=== PATIENT | male | born 1935 | race Caucasian/White ===

== ENCOUNTER 2022-12-25 09:35 | Outpatient (CLI) | payer MEDICARE, OTHER, SELFPAY ==
--- OUTSIDE RECORDS SUMMARY | 2022-12-25 22:04 | XMS_ITS | Continuity of Care Document ---
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 Name Role Phone Unavailable Unavailable Unavailable Procedures Procedure Date Office/outpatient visit,[facility] 2010 X-ray exam lwr spine, min 4 views Advance Directives Directive Yes / No Effective Date File Name No Information Encounters Encounter Description Practice Location Reason(s) For Visit Diagnoses Date Provider Providers Copied on Encounter [facility] [place], [address], [facility], tel:[phone] [facility] No Information No Information Office/outpat ient visit,[facility], [facility] [place] [facility] [place], [address], [facility], tel:[phone] [facility] [place] No Information Sofia Proctor. [facility] [place], [address] [place] [address], [address], [place], [id number], . tel:[phone] Family History Family Member Type Diagnosis Age At Onset No Information Payers Payer name Insurance type Covered green party ID Authoriza tion(s) Medicare MB [id number] Aetna CI [id number] [facility], [facility]. CI [id number] Social History Type Description Quantity Date Captured Comments Sex Male Smoking Status No Information Chief Complaint And Reason For Visit No Information Reason For Referral Reason For Referral No Information History Of Present Illness Encounter Date Complaint History Of Prese nt Illness No Information Functional Status Date Functional Assessmen t No Information Instructions Date Instruction Additional Infor mation No Information Assessments Type Assessment Date No Information Patient Care Teams Name Effective Dates (start - stop) Status Members No Information
== END 2022-12-25 09:36 | disposition home or self-care (01) ==
PROVIDERS: PCP Internal Medicine; Referring Provider Internal Medicine; Visit Provider Internal Medicine
DX: I10 Essential (primary) hypertension (principal); K76.0 Fatty (change of) liver, not elsewhere classified; E78.5 Hyperlipidemia, unspecified; R97.20 Elevated prostate specific antigen [PSA]; E11.9 Type 2 diabetes mellitus without complications
CPT/HCPCS: 80053; 80061; 84153

== ENCOUNTER 2024-02-18 08:30 | Outpatient (CLI) | payer MEDICARE, SELFPAY ==
--- OUTSIDE RECORDS SUMMARY | 2024-02-21 07:10 | XMS_ITS | Clinical Summary ---
Author Organization [facility] Address [place], [place] [address] Care Team Providers Care Deli/Bakery Associate Name Role Phone Mckinley Olvera MD Primary Care Provider Allergies No known active allergies Medications Medication Sig Dispensed Refills Start Date End Date Status ONETOUCH ULTRA TEST strip 06/24/2016 Active fluorometholone (FML) 0.1 % ophthalmic suspension SHAKE LQ AND INT 1 GTT IN OS ONCE D 12 07/16/2017 Active BD INSULIN PEN NEEDLE UF 31 gauge x 5/16 U BID 4 04/18/2017 Active celecoxib (CELEBREX) 200 mg capsule Take 1 capsule by mouth. DAILY PRN 0 04/08/2018 Active insulin glargine (LANTUS U-100 INSULIN) 100 unit/mL injection Inject 47 Units subcutaneous once daily. 10 mL 04/08/2018 Active metoprolol tartrate (LOPRESSOR) 25 mg tablet 0.5 tablets 2 times daily. 0 04/08/2018 Active multivitamin (MVI) tablet Take 1 tablet by mouth once daily. 0 04/08/2018 Active insulin aspart U-100 (NOVOLOG) 100 unit/mL solution for injection Inject subcutaneous 3 times daily before meals. 16 U in the AM , 16 U in the evening and 11 Units one time daily 0 04/08/2018 Active carboxymethylcellu lose 0.5% (REFRESH TEARS) 0.5 % drop ophthalmic drops Place 1 Drop into both eyes 4 times daily if needed for Dry Eyes. 0 04/08/2018 Active rosuvastatin (CRESTOR) 10 mg tablet Take 1 tablet by mouth at bedtime. 0 04/08/2018 Active montelukast (SINGULAIR) 10 mg tablet Take 1 tablet by mouth at bedtime. 0 04/08/2018 Active lisinopril (PRINIVIL; ZESTRIL) 20 mg tablet Take 2 tablets by mouth once daily. 0 04/08/2018 Active melatonin 3 mg tablet Take 1 tablet by mouth at bedtime if needed for Sleep. 0 04/17/2018 Active hydrocortisone 1 % creamIndications:R phillip Apply topically to affected area(s) 2 times daily. 14.2 g 04/25/2018 Active traMADol (ULTRAM) 50 mg tablet TK 1 TO 2 TS PO Q 6 H PRN P 0 12/09/2018 Active ONETOUCH ULTRASOFT LANCETS 4 times daily. 2 09/11/2018 Active oxybutynin XL (DITROPAN XL) 5 mg CR tabletIndications: Urinary urgency TAKE 1 TABLET BY MOUTH EVERY DAY 90 Tablet 3 09/14/2021 Active Active Problems Problem Noted Date Diagnosed Date Elevated PSA 06/24/2018 History of bladder cancer 04/27/2018 Overview (04/27/2018): Images from the original note were not included. S/P right knee arthroscopy 04/10/2018 Aftercare following right knee joint replacement surgery 04/10/2018 Constipation 04/10/2018 Acute postoperative pain of right knee 8 Hypertension 04/08/2018 Hyperlipidemia 04/08/2018 DM type 2 with diabetic peripheral neuropathy Spinal stenosis, lumbar aminata on, without neurogenic claudication 11/10/2010 Degeneration of lumbar or lumbosacral interverte bral disc 11/10/2010 Social History Tobacco Use Types Packs/Day Years Used Date Smoking Tobacco: Never Smokeless Tobacco: Never Tobacco Cessation:Counseling Given: Yes Alcohol Use Standard Drinks/Week Comments Not Currently 0 (1 standard drink = 0.6 oz pur e alcohol) Sex and Gender Information Value Date Recorded Sex Assigned at Not on file Gender Identity Not on file Sexual Orientation Not on file Obstetrics History Last Filed Vital Signs Vital Sign Reading Time Taken Comments Blood Pressure 179/81 03/15/2020 9:10 AM ROTARY OPERATOR Pulse 91 03/15/2020 9:10 AM ROTARY OPERATOR Temperature 36.8 ??C (98.2 ??F) 06/24/2018 9:53 AM CD T Respiratory Rate 20 04/07/2019 10:1 2 AM ROTARY OPERATOR Oxygen Saturation 98% 03/15/2020 9:10 AM ROTARY OPERATOR Inhaled Oxygen Concentration - - Weight 75.2 kg (165 lb 11.2 oz) 03/15/2020 9:10 AM ROTARY OPERATOR Height 172.7 cm (5' 8) 07/19/2017 2:18 PM CDT Body Mass Index 25.19 07/19/2017 2:18 PM CDT Plan of Treatment Health Maintenance Due Date Last Done Comments Tdap 1945 Depression screening for age 12+ 1946 Tetanus booster 1954 Zoster (shingles) series for age 50+ (1 of 2) 11/27/18 85 Medicare Wellness for age 65+ 11/28/1999 Pneumococcal series for age 65+ (1 of 1 - PCV) 000 RSV vaccine for adults or pr egnancy (1 - 1-dose 75+ series) 2009 BMI (ht and wt on same day) for age 18+ 07/19/2018 0 07/19/2017 COVID-19 vaccine series (2023-25 season) 4 Influenza for age 65+ 12/16/2023 Care Teams Deli/Bakery Associate Relationship Specialty Start Date End Date Mckinley Olvera MD [address] [place] [address] PCP - General 09/07/10
--- OUTSIDE RECORDS SUMMARY | 2024-02-21 07:10 | XMS_ITS | Continuity of Care Document ---
Author Organization [facility] Address [address] [place] [address] Care Team Providers Care Personal Shopper Name Role Phone HUMBERTO FOOTE Primary Care Provider Assessment No assessment recorded. Plan of Treatment Reminders Order Date Submit Date Provider Last Modified By Organization Details Last Modified Time Details Appointments PSA 10 2023 02:20P M [facility] Not available Not available Not available ESTABL ISHED 10 2023 02:40P M David Valdes MD Not available Not available Not available Lab PSA, serum or plasma 2023 024 [email or web address] ro [facility], [address], [place], [address], 12/19/2023 12:55:38 PSA, total, serum or plasma 2023 024 [email or web address] [facility], [address], [place], [address], 12/19/2023 13:18:50 Referral None record ed. Procedures None record ed. Surgeries None record ed. Imaging None record ed. Medication Orders Eligar d 45 mg (6 month) subcut aneous syring e 2023 024 [email or web address] ro [address], [address], 12/19/2023 13:15:34 Patient TargetsNo targets recorded. Patient InstructionsNo instructions recorded. Reason for Referral None Reported. Results Created Date Observation Date Name Description Value Unit Range Abnormal Flag Note LastModifiedBy Organization Detail LastModifiedTime 12/19/19 24 12/19/2023 PSA, serum or plasm a PSA 11.9ng /mL 0-4.0 NG/mL Not Available [facility] [address], [place], [address], 12/05/2023 15:16:19 Result Notes None recorded. Procedures Surgical History Date Name Laterality Status Provider Name and Address Organization Details Recorded Time 4 Blood Draw/GERIATRIC PHYSICAL THERAPIST/PSA RESULTS completed Cirilo cruz [facility] 12/19/2023 12:36:19 4 Faye completed Cirilo cruz [facility] 12/19/2023 13:14:21 4 Blood Draw/GERIATRIC PHYSICAL THERAPIST/PSA RESULTS completed David Valdes MD [address] [place] [address],[address], [address], [facility] 09/03/2023 14:04:52 3 Faye completed Lesley Terry [facility] 09/18/2022 15:17:17 3 Prostate Biopsy Procedure completed David Valdes MD [address] [place] [address],[address] [place] [address], [address], [facility] 07/04/2022 20:08:52 3 Cystoscopy- male completed David Valdes MD [address] [place] [address],[address], [address], [facility] 06/26/2022 13:36:24 3 Keflex post Cysto completed David Valdes MD [address] [place] [address],[address], [place], [address], [facility] 06/26/2022 12:26:10 3 GERIATRIC PHYSICAL THERAPIST/blood draw completed David Valdes MD [address] [place] [address],[address], [place], [address], [facility] 06/26/2022 12:26:14 Imaging Results None recorded. Procedure Notes None recorded. Medical Equipment None Reported. Allergies No known drug allergies Medications Name Sig Start Date Stop Date Status Note LastModified by Organization Details LastModified Time celecoxib 200 mg capsule TAKE ONE CAPSULE BY MOUTH EVERY DAY NEEDED FOR PAIN active Not Available Not Available No t Available bicalutamid e 50 mg tablet TAKE ONE TABLET BY MOUTH EVERY DAY FOR 30 DAYS 12/18 completed Not Available Not Available Not Available lisinopril 20 mg tablet TAKE TWO TABLETS(4 0MG) BY MOUTH EVERY DAY FOR HYPERTENS ION active Not Available Not Available No t Available Lantus U-100 Insulin 100 unit/mL subcutaneou s solution INJECT 47 UNIT (0.47 ML) SUBCUTANE OUSLY EVERY DAY FOR DIABETES; active Not Available Not Available No t Available ciprofloxac in 500 mg tablet TAKE ONE TABLET BY MOUTH EVERY 12 HOURS FOR 4 DAYS - START 1 DAY BEFORE BIOPSY 12/18 completed Not Available Not Available Not Available sulfamethox azole 800 mg-trimetho prim 160 mg tablet TAKE 1 TABLET BY MOUTH EVERY 12 HOURS FOR 7 DAYS 06/26 completed Not Available Not Available Not Available tramadol 50 mg tablet TAKE ONE TABLET (50 MG) BY MOUTH EVERY EIGHT HOURS NEEDED FOR PAIN. active Not Available Not Available No t Available ceftriaxone 1 gram solution for injection Take 1 g by injection route. 08/[address],M A Not Available Not Available Not Available OneTouch Ultra Test strips TEST THREE TIMES DAILY active Not Available Not Available No t Available fluorometho lone 0.1 % eye drops,suspe nsion SHAKE LIQUID AND INSTILL 1 DROP IN LEFT EYE EVERY DAY active Not Available Not Available No t Available oxybutynin chloride ER 5 mg tablet,exte nded release 24 hr TAKE 1 TABLET BY MOUTH EVERY DAY 09/02 completed Not Available Not Available Not Available montelukast 10 mg tablet TAKE ONE TABLET BY MOUTH EVERY DAY FOR ALLERGIES active Not Available Not Available No t Available cefuroxime axetil 500 mg tablet TAKE 1 TABLET BY MOUTH EVERY 12 HOURS FOR 5 DAYS 06/26 completed Not Available Not Available Not Available Eligard 22.5 mg (3 month) subcutaneou s syringe Inject 22.5 mg by subcutane ous route. 2022 active Not Available Not Available Not Avai lable Novolog FlexPen U-100 Insulin aspart 100 unit/mL (3 mL) subcutaneou s INJECT 16 UNIT (0.16 ML) SUBCUTANE OUSLY THREE TIMES A DAY FOR DIABETES active Not Available Not Available No t Available rosuvastati n 10 mg tablet TAKE ONE TABLET(10 MG) BY MOUTH FOR HYPERLIPI DEMIA active Not Available Not Available No t Available metoprolol tartrate 25 mg tablet TAKE 1/2 TABLET(12 .5MG) BY MOUTH TWICE A DAY FOR HYPERTENS ION active Not Available Not Available No t Available Eligard 45 mg (6 month) subcutaneou s syringe Inject 45 mg by subcutane ous route. 2023 active Not Available Not Available Not Avai lable BD Ultra-Fine Short Pen Needle 31 gauge x 5/16 TO USE WITH NOVOLOG FLEXPEN THREE TIMES DAILY active Not Available Not Available No t Available TRUEplus Insulin 1 mL 31 gauge x 5/16 syringe FOR DIABETES; USING FOUR TIMES A DAY active Not Available Not Available No t Available TRUEplus Lancets 28 gauge USE THREE TIMES DAILY active Not Available Not Available No t Available BD Veo Insulin Syringe Ultra-Fine 1 mL 31 gauge x 15/64 USE FOUR TIMES DAILY active Not Available Not Available No t Available Vitals Date Recorded Body height Body mass index (BMI) Body weight Provider Name and Address Organization Details Last Updated DateTime 12/19/2023 170.18 cm 25.8 kg/m2 73487.74 g Cirilo arceo [facility] 12/19/2023 12:35:30 Social History Question Answer Notes LastModified by Organizat ion Details LastModified Time Tobacco Smoking Status [facility] 10:47:21 What Is Your Level Of Alcohol Consumption? Occasional Information not available 05/01/2022 What Is Your Level Of Caffeine Consumption? Heavy Information not available 05/01/2022 Are You Currently Employed? No Information not available 05/01/2022 Recreational Drug Use No Information not available 05/01/2022 What Was The Date Of Your Most Recent Tobacco Screening? 12/19/2023 [email or web address] Information not available 12/19/2023 Have You Ever Been Counseled For Unhealthy Alcohol Use? No Information not available 09/03/2023 What Is Your Relationship Status? Information not available 05/01/2022 Do You Use Any Illicit Or Recreational Drugs? No Information not available 05/01/2022 Has Tobacco Cessation Counseling Been Provided? No Information not available 05/01/2022 Do You Or Have You Ever Used Any Other Forms Of Tobacco Or Nicotine? No Information not available 05/01/2022 How Many Days In The Past Year Have You Consumed 5 Or More Drinks? 0 Information not available 09/03/2023 Sex: Unknown Functional Status None recorded. Mental Status None recorded. Family History Relationship Description Onset Age of this Age Resolved Age Notes LastModified by Organization Details LastModified Time Unspecified Relation Family history of malignant neoplasm Not available 2023 14:03:41 Medical History Condition Response Sexually Transmitted Infection N Diabetes Y Bleeding Disorder N High Blood Pressure Y Kidney Stones N Cancer Y Lung Disease N Depression N High Cholesterol Y GERD/Acid Reflux Y Heart Disease N Immunizations Vaccine Type Date Status Provider Name and Address Organization Details Recorded Time zoster recombinant 08/09/2017 completed David jerez MD [address] [place] [address], [address], [facility] 09/03/2023 14:02:59 zoster recombinant 10/30/2017 completed David jerez MD [address] [place] [address],[address], [address], [facility] 09/03/2023 14:03:00 Influenza, high-dose, quadrivalent, PF 06/30/2020 completed David Valdes MD [address] [place] [address], [address], [facility] 09/03/2023 14:03:00 Influenza, high-dose, quadrivalent, PF 01/26/2022 completed David Valdes MD [address] [place] [address],[address], [address], [facility] 09/03/2023 14:03:00 COVID-19, mRNA, LNP-S, PF, 30 mcg/0.3 mL dose 06/08/2020 completed David Valdes MD [address] [place] [address],[address], [address], [facility] 09/03/2023 14:03:00 COVID-19, mRNA, LNP-S, PF, 30 mcg/0.3 mL dose 06/29/2020 completed David Valdes MD [address] [place] [address],[address], [place], [address], [facility] 09/03/2023 14:03:00 COVID-19, mRNA, LNP-S, PF, 30 mcg/0.3 mL dose 01/18/2021 completed David Valdes MD [address] [place] [address],[address], [place], [address], [facility] 09/03/2023 14:03:00 Pneumococcal conjugate PCV20, polysaccharide [id number] conjugate, adjuvant, PF 05/24/2022 completed David Valdes MD [address] [place] [address],[address], [place], [address], [facility] 09/03/2023 14:03:00 COVID-19, mRNA, LNP-S, bivalent, PF, 30 mcg/0.3 mL dose 01/26/2022 completed David Valdes MD [address] [place] [address],[address], [place], [address], [facility] 09/03/2023 14:03:00 Tdap 02/06/2012 completed David Valdes MD [address] [place] [address],[address], [place], [address], [facility] 09/03/2023 14:03:00 Tdap 02/16/2022 completed David Valdes MD [address] [place] [address],[address], [place], [address], [facility] 09/03/2023 14:03:00 Novel [id number], all formulations 05/02/2009 completed David Valdes MD [address] [place] [address],[address], [place], [address], [facility] 09/03/2023 14:03:00 zoster live 04/29/2010 completed David Valdes MD [address] [place] [address],[address], [place], [address], [facility] 09/03/2023 14:03:00 Influenza, high-dose, trivalent, PF 01/17/2018 completed David Valdes MD [address] [place] [address],[address], [place], [address], [facility] 09/03/2023 14:03:00 Influenza, high-dose, trivalent, PF 02/04/2014 completed David Valdes MD [address] [place] [address],[address], [place], [address], [facility] 09/03/2023 14:03:00 Influenza, high-dose, trivalent, PF 02/04/2015 completed David Valdes MD [address] [place] [address],[address], [place], [address], [facility] 09/03/2023 14:03:00 Influenza, split virus, trivalent, preservative 12/26/2011 completed David Valdes MD [address] [place] [address],[address], [place], [address], [facility] 09/03/2023 14:03:00 Influenza, split virus, trivalent, preservative 12/29/2010 completed David Valdes MD [address] [place] [address],[address], [place], [address], [facility] 09/03/2023 14:03:00 Influenza, split virus, trivalent, PF 12/29/2009 completed David Valdes MD [address] [place] [address],[address], [place], [address], [facility] 09/03/2023 14:03:00 Influenza, split virus, quadrivalent, PF 05/02/2009 completed David Valdes MD [address] [place] [address],[address], [place], [address], [facility] 09/03/2023 14:03:00 Pneumococcal conjugate PCV 13 09/01/2014 completed David Valdes MD [address] [place] [address],[address], [address], [facility] 06/26/2022 12:23:57 Pneumococcal conjugate PCV 13 02/16/2015 completed David Valdes MD [address] [place] [address],[address], [place], [address], [facility] 06/26/2022 12:23:57 Past Encounters Encounter ID Performer Location Encounter Start Date Encounter Closed Date Diagnosis/Indication Diagnosis SNOMED-CT Code Diagnosis ICD10 Code [id number] David Valdes MD [facility] [address] [address] 12/19/2023 12:24:53 12/20/2023 13:55:50 Carcinoma of prostate 969930803 C61 Malignant neoplasm of urinary bladder 706213249 C67.9 Urgent ghassan lashawn to urinate 43790674 R39.15 Health Concerns Section Related Observation LastModified by Organization Detai ls LastModified Time None Recorded Concern Status LastModified by Organization Details LastModified Time None Recorded Payers Encounter Date Sequence Insurance Name Policy Number Policy Rosen Covered Member ID Rosen Member ID Guarantor Name 12/19/2023 1 [place]IC[place]: [employer] Dwight Lares [id number] Dwight Lares 12/19/2023 2 [employer] OPTIONS (MEDICARE SUPPLEMENT) Dwight Lares [id number] Dwight Lares Notes Date Note Type Note Provider Name and Address Organization Details Recorded Time 12/19/2023 text/html HPI Notes: 88 yo male with history of Prostate cancer (cT1c - Russell 4+4=8) and Bladder cancer (superficial - Nov 1999 and CIS - Dec 2003), BPH (s/p TURP in 2001), and elevated PSA (s/p TRUS bx - Apr 1993 and Apr 1997). He underwent TUR-BTs in Nov 1999, 01/07/00, 03/27/00, and 10/09/00. He was then treated with BCG (6 weeks). Follow-up Cystoscopies and urine cytologies were negative. 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 He underwent an 8 week course of Mitomycin. Follow-up cystoscopies, biopsies, and urine cytology / FISH were negative. His last Cystoscopy was 03/15/20. + Family H/O Prostate cancer - uncle. He was on Oxybutynin ER 5 mg daily. 05/01/22 - He presents for follow-up on Elevated PSA and Bladder cancer. He reports more urinary urgency and frequency over the past several months - denies dysuria. He voids every 2 hours during the day and 1x/night. UCx (05/01/22) - Citrobacter freundii - treated with Bactrim DS BID x 7 days 06/26/22 - He presents for follow-up on Bladder cancer and Elevated PSA. He voids every 1-3 hours during the day and 0-1x/night. He denies hesitancy, hematuria, or dysuria. TRUS bx (07/04/22) - 29.1 gm - Prostate cancer - cT1c - Jason 4+4 = 8 - Russell 4+4 = 8 - Right - 1/6 cores (15%) - no perineural invasion - Russell 4+3 = 7 - Lesion 1 (left mid - all cores (90-100%) - no perineural invasion - Russell 3+4 = 7 - Left - all cores (35-90%) - no perineural invasion seen - Hormonal therapy - Eligard 22.5 mg (09/18/22) 09/03/23- He presents for follow-up on prostate cancer and PSA. He voids every 1-3 hours during the day and 1x/night. He still has hot flashes (several times /day). 12/19/23- He presents for follow-up on prostate cancer and PSA. + Hot flashes. No change in urination. - PSA -11.9 PSA - 1.69 (05/02/10) - 2.96 (03/10/11) - 7.52 (01/11/18) - 7.09 (03/18/18) - 6.01 (06/20/18) - 8.77 (12/25/18) - 8.45 (03/23/19) - 12.39 () - 11.72 (01/27/20) - 13.7 (06/23/21) - 24.8 (02/09/22) - 39.1 (06/26/22) - 6.5 (09/03/23) - 11.9 (12/19/23) Prostate MRI (03/22/20) - 18 gm - Lesion 1 - (PI-RADS 4) - 1.2 cm x 1.2 cm - Left mid-gland (5-6 o'clock) Bone scan (08/01/22) - no convincing evidence of skeletal metastases CT scan (08/01/22) - no evidence of metastatic disease - + Right inguinal hernia (fat) David Valdes MD [address] [facility],[address], [place], [address], [place] [facility] 12/19/2023 22:01:01
--- OUTSIDE RECORDS SUMMARY | 2024-02-21 07:10 | XMS_ITS | Continuity of Care Document ---
Author Organization Z [facility] Address [address] [place] [address] Phone Care Team Providers Care Escort Car Driver Name Role Phone Unavailable Unavailable Unavailable Procedures Procedure Date Office/outpatient visit,[facility], [facility] 2010 X-ray exam lwr spine, min 4 views Advance Directives Directive Yes / No Effective Date File Name No Information Encounters Encounter Description Practice Location Reason(s) For Visit Diagnoses Date Provider Providers Copied on Encounter Z [facility] [place], [address], [facility], tel:[phone] [facility] No Information No Information Office/outpat ient visit,[facility], [facility] [place], [address], [facility], tel:[phone] [facility] [place] No Information Sofia Proctor. [facility] [place], [address], [address], [place], [id number], . tel:[phone] Family History Family Member Type Diagnosis Age At Onset No Information Payers Payer name Insurance type Covered democrat ID Authoriza tion(s) Medicare [place] [id number] [employer] CI [id number] [facility], [facility]. CI [id number] Social History Type Description Quantity Date Captured [...]
== END 2024-02-18 08:31 | disposition home or self-care (01) ==
LOC: NFLDREF 02-21 07:08
PROVIDERS: PCP Internal Medicine; Referring Provider Internal Medicine; Visit Provider Internal Medicine
DX: E11.9 Type 2 diabetes mellitus without complications (principal); I10 Essential (primary) hypertension; C61 Malignant neoplasm of prostate; R97.20 Elevated prostate specific antigen [PSA]; E78.5 Hyperlipidemia, unspecified; E11.69 Type 2 diabetes mellitus with other specified complication; Z79.4 Long term (current) use of insulin; Z12.5 Encounter for screening for malignant neoplasm of prostate
CPT/HCPCS: 80053; 80061; G0103

== ENCOUNTER 2024-08-03 14:24 | Emergency (ER) | payer MEDICARE, SELFPAY ==
[2024-08-03] VITALS (28 sets, daily range): BP systolic 82–128; BP diastolic 36–72; PULSE 80–124; RESP 12–36; TEMP 36.2–36.4; O2SAT 90–100; BMI 25.1
--- OUTSIDE RECORDS SUMMARY | 2024-08-03 14:26 | XMS_ITS | Data Portability ---
[facility] Organization [facility] Address [address] [facility] [address] [place] [address] Care Team Providers Care Trust Vault Clerk Name Role Phone HUMBERTO FOOTE Primary Care Provider Assessment No assessment recorded. Plan of Treatment Reminders Order Date Submit Date Provider Last Modified By Organization Details Last Modified Time Details Appointments PSA 2024 02:20P M [facility] Not available Not available Not available ESTABL ISHED 2024 02:40P M David Valdes MD Not available Not available Not available Lab PSA, serum or plasma 2024 025 [facility], [address], [place], [address], 06/17/2024 16:12:44 PSA, total, serum or plasma 2024 025 [email or web address] [facility], [address], [place], [address], 06/17/2024 16:21:34 PSA, serum or plasma 2023 024 [email or web address] ro [facility], [address], [place], [address], 03/19/2024 15:32:08 PSA, total, serum or plasma 2023 024 [email or web address] ro [facility], [address], [place], [address], 03/26/2024 17:08:35 PSA, serum or plasma 2023 024 [email or web address] ro [facility], [address], [place], [address], 12/19/2023 12:55:38 PSA, total, serum or plasma 2023 024 [email or web address] [facility], [address], [place], [address], 12/19/2023 13:18:50 PSA, serum or plasma 2023 024 [facility], [address], [place], [address], 09/03/2023 14:05:18 PSA, total, serum or plasma 2023 024 [email or web address] [facility], [address], [place], [address], 09/03/2023 16:34:20 Referral None record ed. Procedures None record ed. Surgeries None record ed. Imaging None record ed. Medication Orders Eligar d 45 mg (6 month) subcut aneous syring e 2023 024 [email or web address], [address], 12/19/2023 13:15:34 Eligar d 22.5 mg (3 month) subcut aneous syring e [address], [address], 06/17/2024 15:49:45 Patient TargetsNo targets recorded. Patient InstructionsNo instructions recorded. Reason for Referral None Reported. Results Created Date Observation Date Name Description Value Unit Range Abnormal Flag Note LastModifiedBy Organization Detail LastModifiedTime 09/03/19 24 09/03/2023 PSA, serum or plasm a PSA 6.5 ng/mL 0-4.0 NG/mL Not Available [facility] [address], [place], [address], 08/24/2023 15:06:19 12/19/19 24 12/19/2023 PSA, serum or plasm a PSA 11.9ng /mL 0-4.0 NG/mL Not Available [facility] [address], [place], [address], 12/05/2023 15:16:19 03/19/20 24 03/19/2024 PSA, serum or plasm a PSA 2.3 ng/ml 0-4.0 NG/mL Not Available [facility] [address], [place], [address], 03/18/2024 12:44:10 06/18/19 25 06/17/2024 PSA, serum or plasm a PSA 1.3NG/ ml 0-4.0 NG/mL Not Available [facility] [address], [place], [address], 06/13/2024 11:35:32 Result Notes None recorded. Procedures Surgical History Date Name Laterality Status Provider Name and Address Organization Details Recorded Time 5 Blood Draw/RANCH HAND SUPERVISOR/PSA RESULTS completed David Valdes MD [address] [place] [address],[address], [place], [address] 06/17/2024 15:50:57 4 Blood Draw/RANCH HAND SUPERVISOR/PSA RESULTS completed Ranjan Garcia [facility] 03/19/2024 15:18:54 4 Blood Draw/RANCH HAND SUPERVISOR/PSA RESULTS completed Cirilo cruz [facility] 12/19/2023 12:36:19 4 Faye completed Cirilo cruz [facility] 12/19/2023 13:14:21 4 Blood Draw/RANCH HAND SUPERVISOR/PSA RESULTS completed David Valdes MD [address] [place] [address],[address], [place], [address], [facility] 09/03/2023 14:04:52 3 Eliluigid completed Lesley Terry [facility] 09/18/2022 15:17:17 3 Prostate Biopsy Procedure completed David Valdes MD [address] [place] [address],[address], [place], [address], [facility] 07/04/2022 20:08:52 3 Cystoscopy- male completed David Valdes MD [address] [place] [address],[address], [place], [address], [facility] 06/26/2022 13:36:24 3 Keflex post Cysto completed David Valdes MD [address] [place] [address],[address], [place], [address], [facility] 06/26/2022 12:26:10 3 RANCH HAND SUPERVISOR/blood draw completed David Valdes MD [address] [place] [address],[address], [place], [address], [facility] 06/26/2022 12:26:14 Imaging Results None recorded. Procedure Notes None recorded. Medical Equipment None Reported. Allergies Allergen ID Allergen Name Allergen Category Reaction Reaction Severity Criticality Documentation Date Start Date Code Code System Note Provider Name and Address Organization Details Recorded Time 226546 nickel environme nt Not available Not available high 06/17/20242023 79230 29 RxNorm Not Available Not Available Not Available No known drug allergies Medications Name Sig Start Date Stop Date Status Note LastModified by Organization Details LastModified Time celecoxib 200 mg capsule TAKE 1 CAPSULE BY MOUTH EVERY DAY NEEDED FOR PAIN. active Not Available Not Available No t Available bicalutamid e 50 mg tablet TAKE ONE TABLET BY MOUTH EVERY DAY FOR 30 DAYS 12/18 completed Not Available Not Available Not Available acetaminoph en 325 mg tablet TAKE TWO TABLETS(6 50MG) BY MOUTH EVERY 6 HOURS NEEDED FOR PAIN 06/17 completed Not Available Not Available Not Available lisinopril 20 mg tablet TAKE TWO TABLETS(4 0MG) BY MOUTH EVERY DAY FOR HYPERTENS ION active Not Available Not Available No t Available Lantus U-100 Insulin 100 unit/mL subcutaneou s solution INJECT 47 UNIT (0.47 ML) SUBCUTANE OUSLY EVERY DAY FOR DIABETES; PATIENT IS DUE FOR A FOLLOW UP active Not Available Not Available No t [...] Available tramadol 50 mg tablet TAKE ONE TABLET(50 MG) BY MOUTH EVERY 8 HOURS NEEDED FOR PAIN active Not Available Not Available No t Available ceftriaxone 1 gram solution for injection Take 1 g by injection route. 08/[address],M A Not Available Not Available Not Available OneTouch Ultra Test strips TEST THREE TIMES DAILY active Not Available Not Available No t Available fluorometho lone 0.1 % eye drops,suspe nsion INSTILL 1 DROP IN LEFT EYE DAILY active Not Available Not Available No [...] Inject 22.5 mg by subcutane ous route. 06/17 completed Not Available Not Available Not Available Novolog FlexPen U-100 Insulin aspart 100 unit/mL (3 mL) subcutaneou s INJECT 16 UNITS (0.16 ML) SUBCUTANE OUSLY THREE TIMES A DAY FOR DIABETES; active Not Available Not Available No t Available rosuvastati n 10 mg tablet TAKE ONE TABLET(10 MG) BY MOUTH EVERY DAY FOR HYPERLIPI DEMIA active Not Available Not [...] and Address Organization Details Last Updated DateTime 09/03/2023 170.18 cm 25.1 kg/m2 59549.78 g David Valdes MD [address] [place] [address],[address], [address] [place] [address] 09/03/2023 14:02:53 Date Recorded Body height Body mass index (BMI) Body weight Provider Name and Address Organization Details Last Updated DateTime 12/19/2023 170.18 cm 25.8 kg/m2 67403.74 g Cirilo arceo [facility] 12/19/2023 12:35:30 Date Recorded Body height Body mass index (BMI) Body weight Provider Name and Address Organization Details Last Updated DateTime 03/19/2024 170.18 cm 25.1 kg/m2 69376.78 g Ranjan Garcia [facility] 03/19/2024 15:18:23 Date Recorded Body height Body mass index (BMI) Body weight Provider Name and Address Organization Details Last Updated DateTime 06/17/2024 170.18 cm 24.7 kg/m2 37138.59 g David Valdes MD [address] [place] [address],[address] [address] 06/17/2024 15:48:52 Social History Question Answer Notes LastModified by Organizat ion Details LastModified Time Tobacco Smoking Status Never Smoker [facility] 05/01/2022 10:47:21 What Is Your Level Of Alcohol Consumption? Occasional Information not available 05/01/2022 What Is Your Level Of Caffeine Consumption? Heavy Information not available 05/01/2022 Are You Currently Employed? No Information not available 05/01/2022 Recreational Drug Use No Information not available 05/01/2022 What Was The Date Of Your Most Recent Tobacco Screening? 06/17/2024 Information not available 06/17/2024 Have You Ever Been Counseled For Unhealthy [...] Consumed 5 Or More Drinks? 0 Information no t available 09/03/2023 Sex: Unknown Functional Status None recorded. Mental Status None recorded. Family History Relationship Description Onset Age of this Age Resolved Age Notes LastModified by Organization Details LastModified Time Unspecified Relation Family history of malignant neoplasm Not available 2023 14:03:41 Medical History Condition Response Sexually Transmitted Infection N Diabetes Y Bleeding Disorder N High Blood Pressure Y Kidney Stones N Cancer Y Depression N Lung Disease N High Cholesterol Y GERD/Acid Reflux Y Heart Disease N Immunizations Vaccine Type Date Status Note Provider Nam e and Address Organization Details Recorded Time zoster recombinant 8 completed David Valdes MD [address] [place] [address],[address], [address], [facility] 09/03/2023 14:02:59 zoster recombinant 8 completed David Valdes MD [address] [place] [address],[address], [address], [facility] 09/03/2023 14:03:00 Influenza, high-dose, quadrivalent, PF 1 completed David Valdes MD [address] [place] [address],[address], [place], [address], [facility] 09/03/2023 14:03:00 Influenza, high-dose, quadrivalent, PF 2 completed David Valdes MD [address] [place] [address],[address], [place], [address], [facility] 09/03/2023 14:03:00 COVID-19, mRNA, LNP-S, PF, 30 mcg/0.3 mL dose 1 completed David Valdes MD [address] [place] [address],[address], [place], [address], [facility] 09/03/2023 14:03:00 COVID-19, mRNA, LNP-S, PF, 30 mcg/0.3 mL dose 1 completed David Valdes MD [address] [place] [address],[address], [place], [address], [facility] 09/03/2023 14:03:00 COVID-19, mRNA, LNP-S, PF, 30 mcg/0.3 mL dose 1 completed David Valdes MD [address] [place] [address],[address], [place], [address], [facility] 09/03/2023 14:03:00 Pneumococcal conjugate PCV20, polysaccharide [id number] conjugate, adjuvant, PF 3 completed David Valdes MD [address] [place] [address],[address], [place], [address], [facility] 09/03/2023 14:03:00 COVID-19, mRNA, LNP-S, bivalent, PF, 30 mcg/0.3 mL dose 2 completed David Valdes MD [address] [place] [address],[address], [place], [address], [facility] 09/03/2023 14:03:00 Tdap 2 completed David Valdes MD [address] [place] [address],[address], [place], [address], [facility] 09/03/2023 14:03:00 Tdap 2 completed David Valdes MD [address] [place] [address],[address], [place], [address], [facility] 09/03/2023 14:03:00 Novel [id number], all formulations 0 completed David Valdes MD [address] [place] [address],[address], [place], [address], [facility] 09/03/2023 14:03:00 zoster live 1 completed David Valdes MD [address] [place] [address],[address], [place], [address], [facility] 09/03/2023 14:03:00 Influenza, high-dose, trivalent, PF 8 completed David Valdes MD [address] [place] [address],[address], [place], [address], [facility] 09/03/2023 14:03:00 Influenza, high-dose, trivalent, PF 4 completed David Valdes MD [address] [place] [address],[address], [place], [address], [facility] 09/03/2023 14:03:00 Influenza, high-dose, trivalent, PF 5 completed David Valdes MD [address] [place] [address],[address], [place], [address], [facility] 09/03/2023 14:03:00 Influenza, split virus, trivalent, preservative 2 completed David Valdse MD [address] [place] [address],[address], [place], [address], [facility] 09/03/2023 14:03:00 Influenza, split virus, trivalent, preservative 1 completed David Valdes MD [address] [place] [address],[address], [place], [address], [facility] 09/03/2023 14:03:00 Influenza, split virus, trivalent, PF 0 completed David Valdes MD [address] [place] [address],[address], [place], [address], [facility] 09/03/2023 14:03:00 Influenza, split virus, quadrivalent, PF 0 completed David Valdes MD [address] [facility],[address], [place], [address], [facility] 09/03/2023 14:03:00 Pneumococcal conjugate PCV 13 5 completed David Valdes MD [address] [place] [address],[address], [place], [address], [facility] 06/26/2022 12:23:57 Pneumococcal conjugate PCV 13 5 completed David Valdes MD [address] [place] [address],[address], [place], [address], [facility] 06/26/2022 12:23:57 Past Encounters Encounter ID Performer Location Encounter Start Date Encounter Closed Date Diagnosis/Indication Diagnosis SNOMED-CT Code Diagnosis ICD10 Code Diagnosis Note [id number] David Valdes MD [facility] [address] [place] [address] 05/01/2022 10:18:03 05/08/2022 12:49:08 Urgent desire to urinate [id number] R39.15 3. Urinary urgency- UTI may contributi ng- continue Oxybutynin ER 5 mg daily Malignant neoplasm of urinary bladder [id number] C67.9 2. 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 Elevated PSA- Prostate MRI (03/22/20) - 18 gm - Lesion 1 - (PI-RADS 4) - 1.2 cm x 1.2 cm - Left mid-gland (5-6 o'clock)- significan t increase in recent PSA (24.8) - currently has UTI- concerning for prostate cancer- discussed the options - monitor PSAs or prostate biopsy- will treat UTI and recheck PSA in 2 months- will need Prostate biopsy if PSA > 20 Acute urin ngoc tract infection [id number] N39.0 4. UTI- check UCx- start Ceftin 500 mg BID x 5 days [id number] David Valdes MD [facility] [address] [place] [place] [address] 06/26/2022 11:49:33 06/30/2022 12:50:17 Prostate specific antigen above reference range [id number] R97.20 1. Elevated PSA- Prostate MRI (03/22/20) - 18 gm - Lesion 1 - (PI-RADS 4) - 1.2 cm x 1.2 cm - Left mid-gland (5-6 o'clock)- PSA (39.5) - significan t increase - UA is normal- concerning for prostate cancer- recommend UroNav bx of prostate - risks include bleeding, infection, and blood in the semen- Cipro 500 mg BID x 4 days (start 1 day before the bx) Malignant neoplasm of urinary bladder [id number] C67.9 2. 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 Urinary urgency- continue Oxybutynin ER 5 mg daily [id number] David Valdes MD _[address] [place] [address] 07/04/2022 16:32:07 07/06/2022 13:02:58 Prostate specific antigen above reference range [id number] R97.20 1. Elevated PSA- Prostate MRI (03/22/20) - 18 gm - Lesion 1 - (PI-RADS 4) - 1.2 cm x 1.2 cm - Left mid-gland (5-6 o'clock)- PSA (39.5) - significan t increase- concerning for prostate cancer- s/p cognitive MRI fusion TRUS bx of the prostate today- complete course of Cipro- await bx results Malignant neoplasm of urinary bladder 108513150 C67.9 2. 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 Urinary urgency- continue Oxybutynin ER 5 mg daily [id number] David Valdes MD [facility] 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 Prostate cancer - cT1c - Jason 4+4 = 8 - we reviewed the prostate biopsy results and Tavo table data, CT scan and Bone scan.- no obvious evidence of metastatic disease seen on CT scan or Bone scan- treatment options discussed included expectant management , hormonal therapy, cryotherap y, HIFU, radiation (Brachythe rapy and XRT), and surgery (Robot-ass isted laparoscop ic prostatect priscila and open Radical retropubic prostatect priscila with bilateral pelvic lymph node dissection ). Risks of surgery include bleeding, infection, hernia, rectal injury, urinary incontinen ce, erectile dysfunctio n, and lymphocele formation. - given his prostate cancer, PSA, medical issues, and age - recommend Hormonal therapy(ri sks include hot flashes, weight gain, decrease energy / libido, osteoporos is, and blood clots)(rec ommend he take Calcium 1200 mg daily and Vitamin D3 1000 IU daily)- his questions were answered today- start Bicalutami de 50 mg daily for 30 days- plan Eligard 22.5 mg next week- Follow-up in 3 months with PSA and Eligard [id number] [facility] [address] [place] [address] 09/18/2022 15:00:08 09/23/2022 09:26:50 Malignant tumor of prostate [id number] C61 [id number] [facility] [address] [address] 09/03/2023 12:51:26 09/04/2023 14:39:31 Carcinoma of prostate 185721731 C61 1. Prostate cancer - cT1c - Moffat 4+4 = 8 (dx - 07/04/22)- CT scan & Bone scan (08/01/22) - no convincing evidence of metastases - Hormonal therapy (3 months - 09/18/22)- PSA (6.5) - decreased- given his high risk prostate cancer - recommend restarting Hormonal therapy- patient would like to monitor PSA- Follow-up on 3 months with PSA Malignant neoplasm of urinary bladder 181801116 C67.9 2. 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 Prostate cancer - cT1c - Moffat 4+4 = 8 (dx - 07/04/22)- CT scan & Bone scan (08/01/22) - no convincing evidence of metastases - Hormonal therapy (3 months - 09/18/22)- PSA (11.9) - increased- given his high risk prostate cancer - recommend restarting Hormonal therapy- Eligard 45 mg today (12/19/23)- Follow-up on 3 months with PSA Malignant neoplasm of urinary bladder 554528995 C67.9 2. 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 [address] 03/19/2024 15:09:02 03/21/2024 14:09:38 Carcinoma of prostate 720872667 C61 1. Prostate cancer - cT1c - Jason 4+4 = 8 (dx - 07/04/22)- CT scan & Bone scan (08/01/22) - no convincing evidence of metastases - Hormonal therapy (3 months - 09/18/22)- restarted ADT - Eligard 45 mg - (12/19/23)- PSA (2.3) - decreased- Follow-up on 3 months with PSA (possible Eligard) Malignant neoplasm of urinary bladder 245004927 C67.9 2. 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 [place], [place] [address] 06/17/2024 15:21:07 06/19/2024 16:57:24 Carcinoma of prostate 846049194 C61 1. Prostate cancer - cT1c - Jason 4+4 = 8 (dx - 07/04/22)- CT scan & Bone scan (08/01/22) - no convincing evidence of metastases - Hormonal therapy (3 months - 09/18/22)- restarted ADT - Eligard 45 mg - (12/19/23)(h as Hot flashes)- PSA (1.3) - decreased- Follow-up on 3 months with PSA (possible Eligard) Malignant neoplasm of urinary bladder 729522278 C67.9 2. 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)- Cystoscopy (06/26/22) - no tumors seen- patient declined Cystoscopy today- recommend UA, urine cytology, and Cystoscopy in the future Urgent ghassan lashawn to urinate [id number] R39.15 H/O Urinary urgency- stopped Oxybutynin ER 5 mg daily- if his urgency worsens - restart Oxybutynin Health Concerns Section Related Observation LastModified by Organization Detai ls LastModified Time None Recorded Concern Status LastModified by Organization Details LastModified Time None Recorded Advance Directives Directive None Recorded Payers Encounter Date Sequence Insurance Name Policy Number Policy Rosen Covered Member ID Rosen Member ID Guarantor Name 09/18/2022 2 [employer] (MEDICARE SUPPLEMENT) Dwight Lares [id number] Dwight Lares 09/18/2022 1 [facility] [id number] Dwight Lares [id number] Dwight Lares 09/03/2023 2 [employer] (MEDICARE SUPPLEMENT) Dwight Lares [id number] Dwight Lares 09/03/2023 1 [facility] [id number] Dwight Lares [id number] Dwight Lares 12/19/2023 2 [employer] (MEDICARE SUPPLEMENT) Dwight Lares [id number] Dwight Lares 12/19/2023 1 [facility] [id number] Dwight Lares [id number] Dwight Lares 03/19/2024 2 [employer] (MEDICARE SUPPLEMENT) Dwight Lares [id number] Dwight Lares 03/19/2024 1 [facility] [id number] Dwight Lares [id number] Dwight Lares 06/17/2024 2 [employer] (MEDICARE SUPPLEMENT) Dwight Lares [id number] Dwight Lares 06/17/2024 1 [facility] [id number] Dwight Lares [id number] Dwight Lares Notes Date Note Type Note Provider Name and Address Organization Details Recorded Time 09/03/2023 text/html 87 yo male with history of Prostate cancer (cT1c - Jason 4+4 = 8) and Bladder cancer (superficial - Nov 1999 [...] 03/15/20. + Family H/O Prostate cancer - uncle.He is on Oxybutynin ER 5 mg daily. 05/01/22 [...] cancer - cT1c - Jason 4+4 = 8- Jason 4+4 = 8 - Right - 1/6 cores (15%) - no perineural invasion- Jason 4+3 = 7 - Lesion 1 (left mid - all cores (90-100%) - no perineural invasion- Jason 3+4 = 7 - Left - all cores (35-90%) - no perineural invasion seen - Hormonal therapy - Eligard 22.5 mg (09/18/22) 09/03/23- He presents for follow-up on prostate cancer and PSA. He voids every 1-3 hours during the day and 1x/night. He still has hot flashes (several times /day).PSA - 6.5 __PSA - 1.69 (05/02/10)- 2.96 (03/10/11)- 7.52 (01/11/18)- 7.09 (03/18/18)- 6.01 (06/20/18)- 8.77 (12/25/18)- 8.45 (03/23/19)- 12.39 ()- 11.72 (01/27/20)- 13.7 (06/23/21)- 24.8 (02/09/22)- 39.1 (06/26/22)- 6.5 (09/03/23) Prostate MRI (03/22/20) - 18 gm- Lesion 1 - (PI-RADS 4) - 1.2 cm x 1.2 cm - Left mid-gland (5-6 o'clock) Bone scan (08/01/22) - no convincing evidence of skeletal metastases CT scan (08/01/22) - no evidence of metastatic disease- + Right inguinal hernia (fat) David Valdes MD [address], [place], [address], [facility] - [facility] 09/03/2023 18:05:39 12/19/2023 text/html 88 yo male with history of Prostate cancer (cT1c - Moffat 4+4=8) and Bladder cancer (superficial - Nov [...] 03/15/20. + Family H/O Prostate cancer - uncle.He was on Oxybutynin ER 5 mg daily. [...] cancer - cT1c - Jason 4+4 = 8- Jason 4+4 = 8 - Right - 1/6 cores (15%) - no perineural invasion- Moffat 4+3 = 7 - Lesion 1 (left mid - all cores (90-100%) - no perineural invasion- Jason 3+4 = 7 - Left - all [...] PSA. + Hot flashes. No change in urination.- PSA -11.9 ____PSA - 1.69 (05/02/10)- 2.96 (03/10/11)- 7.52 (01/11/18)- 7.09 (03/18/18)- 6.01 (06/20/18)- 8.77 (12/25/18)- 8.45 (03/23/19)- 12.39 ()- 11.72 (01/27/20)- 13.7 (06/23/21)- 24.8 (02/09/22)- 39.1 (06/26/22)- 6.5 (09/03/23)- 11.9 (12/19/23) Prostate MRI (03/22/20) - 18 gm- Lesion 1 - (PI-RADS 4) - 1.2 cm x 1.2 cm - Left mid-gland (5-6 o'clock) Bone scan (08/01/22) - no convincing evidence of skeletal metastases CT scan (08/01/22) - no evidence of metastatic disease- + Right inguinal hernia (fat) David Valdes MD [address], [place], [address], [facility] - [facility] 12/19/2023 22:01:01 03/19/2024 text/html 88 yo male with history of Prostate cancer (cT1c - Moffat 4+4=8) and Bladder cancer (superficial - Nov [...] 03/15/20. + Family H/O Prostate cancer - uncle.He was on Oxybutynin ER 5 mg daily. [...] gm - Prostate cancer - cT1c - Moffat 4+4 = 8- Jason 4+4 = 8 - Right - 1/6 cores (15%) - no perineural invasion- Moffat 4+3 = 7 - Lesion 1 (left mid - all cores (90-100%) - no perineural invasion- Moffat 3+4 = 7 - Left - all [...] + Hot flashes. No change in urination. 03/19/24- He presents for follow-up on prostate cancer and PSA. + Hot flashes. No change in urination. He voids every 1-3 hours during the day and 1x/night.- PSA - 2.3 __PSA - 1.69 (05/02/10)- 2.96 (03/10/11)- 7.52 (01/11/18)- 7.09 (03/18/18)- 6.01 (06/20/18)- 8.77 (12/25/18)- 8.45 (03/23/19)- 12.39 ()- 11.72 (01/27/20)- 13.7 (06/23/21)- 24.8 (02/09/22)- 39.1 (06/26/22)- 6.5 (09/03/23)- 11.9 (12/19/23)- 2.3 (03/19/24) Prostate MRI (03/22/20) - 18 gm- Lesion 1 - (PI-RADS 4) - 1.2 cm x 1.2 cm - Left mid-gland (5-6 o'clock) Bone scan (08/01/22) - no convincing evidence of skeletal metastases CT scan (08/01/22) - no evidence of metastatic disease- + Right inguinal hernia (fat) [facility] - [facility] 03/19/2024 15:42:48 06/17/2024 text/html 88 yo male with history of Prostate cancer (cT1c - Jason 4+4=8) and Bladder cancer (superficial - Nov [...] 03/15/20. + Family H/O Prostate cancer - uncle.He was on Oxybutynin ER 5 mg daily. TRUS bx (07/04/22) - 29.1 gm - Prostate cancer - cT1c - Jason 4+4 = 8- Moffat 4+4 = 8 - Right - 1/6 cores (15%) - no perineural invasion- Jason 4+3 = 7 - Lesion 1 (left mid - all cores (90-100%) - no perineural invasion- Jason 3+4 = 7 - Left - all cores (35-90%) - no perineural invasion seen - Hormonal therapy - Eligard 22.5 mg (09/18/22)- restarted ADT - Eligard 45 mg (12/19/23) 12/19/23- He presents for follow-up on prostate cancer and PSA. + Hot flashes. No change in urination. 03/19/24- He presents for follow-up on prostate cancer and PSA. + Hot flashes. No change in urination. He voids every 1-3 hours during the day and 1x/night. 06/17/24 - He presents for follow-up on prostate cancer and PSA. + Hot flashes (tolerable). He denies urgency or hematuria. He voids every 1-3 hours during the day and 1x/night. He C/O itching at his waist (no rash).- PSA - 1.3 __PSA - 1.69 (05/02/10)- 2.96 (03/10/11)- 7.52 (01/11/18)- 7.09 (03/18/18)- 6.01 (06/20/18)- 8.77 (12/25/18)- 8.45 (03/23/19)- 12.39 ()- 11.72 (01/27/20)- 13.7 (06/23/21)- 24.8 (02/09/22)- 39.1 (06/26/22)- 6.5 (09/03/23)- 11.9 (12/19/23)- 2.3 (03/19/24)- 1.3 (06/17/24) Prostate MRI (03/22/20) - 18 gm- Lesion 1 - (PI-RADS 4) - 1.2 cm x 1.2 cm - Left mid-gland (5-6 o'clock) Bone scan (08/01/22) - no convincing evidence of skeletal metastases CT scan (08/01/22) - no evidence of metastatic disease- + Right inguinal hernia (fat) David Valdes MD [address], [place], [address], [place] - [facility] 06/17/2024 18:14:59
--- NOTE | 2024-08-03 14:51 | ED.GENADULT ---
HPI - General Adult General Time Seen by Provider: 14:51 Date Seen: 08/03/24 Chief complaint: Fall/Minor Trauma Stated complaint: Fell last night, mobility issues Time Seen by Provider: 08/03/24 14:51 Source: patient and RN notes reviewed Mode of arrival: ambulatory Limitations: no limitations History of Present Illness HPI narrative: Dwight is a very pleasant 88-year-old gentleman with history of prostate cancer, hypertension, hyperlipidemia bladder cancer and colon cancer per his report but not in the records as well as right knee replacement 2016 who comes to the emergency room for evaluation of right leg pain after a fall. Yesterday Dwight was stepping over a cat and stool and caught his toe on the stool causing him to fall landing on his right knee. Since that time he has had significant pain and difficulty with weight-bearing. He stayed with his daughter overnight sleeping on the couch. He had family assisting him to the restroom. He also notes some pain on the great toe and dorsum of his foot. He denies hitting his head or any neck pain and is not currently on any blood thinners. Related Data Home Medications ?Medication ?Instructions ?Recorded ?Confirmed carboxymethylcellulose sodium 0.5 1 drp ophthalmic (eye) QID PRN 10/19/21 07/29/24 % eye drops (Refresh Tears) cephalexin 500 mg capsule 2,000 mg PO ONCE 10/19/21 07/29/24 fluorometholone 0.1 % eye 1 drp ophthalmic (eye) Q6H 10/19/21 07/29/24 drops,suspension multivitamin (Daily Multi-Vitamin 1 tab PO QDAY 10/19/21 07/29/24 tablet) oxybutynin chloride 5 mg 5 mg PO DAILY 04/06/23 07/29/24 tablet,extended release 24 hr Previous Rx's ?Medication ?Instructions ?Recorded insulin syringe,safety needle 1 mL #400 ea 02/05/24 31 gauge x 15/64 (BD SafetyGlide Insulin Syringe) lancets #200 ea 02/20/24 lisinopril 20 mg tablet 40 mg (2 x 20 mg) PO QDAY 05/27/24 Hypertension #180 tabs rosuvastatin 10 mg tablet 10 mg PO QDAY Hyperlipidemia #90 05/27/24 tabs tramadol 50 mg tablet 50 mg PO Q8H PRN pain #120 tabs 05/27/24 celecoxib 200 mg capsule (Celebrex) 200 mg PO QDAY PRN pain #90 caps 06/09/24 pen needle, diabetic 31 gauge x #100 ea 06/09/24 5/16 (BD Ultra-Fine Short Pen Needle) insulin glargine 100 unit/mL 47 unit (0.47 mL) subcut QDAY 06/25/24 subcutaneous solution (Lantus Diabetes #20 mL U-100 Insulin) blood sugar diagnostic (OneTouch #400 ea 06/30/24 Ultra Test strips) insulin aspart U-100 100 unit/mL 16 unit (0.16 mL) subcut TID 06/30/24 (3 mL) subcutaneous pen (Novolog Diabetes #30 mL FlexPen U-100 Insulin aspart) montelukast 10 mg tablet 10 mg PO QDAY Allergies #30 tabs 07/03/24 (Singulair) metoprolol tartrate 25 mg tablet 12.5 mg (1/2 x 25 mg) PO BID 07/31/24 Hypertension #180 tabs Allergies Allergy/AdvReac Type Severity Reaction Status Date / Time nickel Allergy Severe Verified 07/29/24 09:22 Review of Systems Status of ROS: Reports: 10 or more systems reviewed and unremarkable except as noted in History and below Const: Denies: fever or chills ENMT: Denies: neck pain Cardio: Denies: chest pain or shortness of breath with exertion Resp: Denies: shortness of breath or cough GI: Denies: abdominal pain or nausea Musculo: Denies: neck pain PFSH PFSH Medical History Osteoarthritis ?M19.90 - Unspecified osteoarthritis, unspecified site (ICD-10) Hearing loss ?H91.90 - Unspecified hearing loss, unspecified ear (ICD-10) Prostate cancer ?C61 - Malignant neoplasm of prostate (ICD-10) Allergies ?T78.40XA - Allergy, unspecified, initial encounter (ICD-10) Encounter for counseling regarding advance directives (03/26/18) ?Z71.89 - Other specified counseling (ICD-10) Diabetes ?E11.9 - Type 2 diabetes mellitus without complications (ICD-10) Surgical History 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/04/18) ?Z96.651 - Presence of right artificial knee joint (ICD-10) History of laparoscopic cholecystectomy (04/26/11) ?Z90.49 - Acquired absence of other specified parts of digestive tract (ICD-10) History of appendectomy ?Z90.49 - Acquired absence of other specified parts of digestive tract (ICD-10) Social History What is your current living situation?: I presently have a place to live Problems where you live: no known problems In the past 12 months, utilities in danger of being shut off: no In past 12 months, lack of transportation kept you from medical appts, meetings, work, or getting things needed for daily living: no In the past 12 mos, have been you worried that your food would run out before you had money to buy more?: never true In the past 12 mos, the food you bought just didn't last and you didn't have money to buy more?: never true Smoking Status: Never smoker Do you use any of these nicotine containing products: None Non-prescribed substance use: denies use How often does anyone, including family, friends and others, physically hurt you: never How often does anyone, including family, friends and others, insult or talk down to you: never How often does anyone, including family, friends and others, threaten you with harm: never How often does anyone, including family, friends and others, scream or curse at you: never Exam Narrative: Exam Narrative: Dwight is alert and oriented. He is not in any acute distress. Mentating normally. Looking younger than his stated age. EOM is full. Face symmetrical. Head is atraumatic normocephalic. Neck is supple. No lymphadenopathy. Heart with regular rate and rhythm and lungs are clear. Abdomen soft nontender. Examination of the right leg shows patient to be in a externally rotated slightly flexed position he is able to bring his knee back and straighten his leg out. Notes that he only has pain with movement. Palpation of the femurs shows pain very distally. Palpation of the knee itself shows only mild discomfort there is no ecchymosis noted. Patient does also have some tenderness in the proximal and mid aspect of the tibia. Again no evidence of ecchymosis. There is area of ecchymosis in on the dorsum of the right foot over the 3rd metatarsal. Patient has some 1+ pitting edema at the ankles. Sensation and motor is distally intact. No evidence of injury on the left. Const: Vital Signs, click to edit/add: Vital Signs - 24 hr 08/03/24 14:38 08/03/24 16:01 Temperature 97.5 F L Pulse Rate 92 Pulse Rate [Pulse Oximeter] 80 Respiratory Rate 18 16 Blood Pressure 119/54 L Blood Pressure [Ri ght Upper Arm] 107/68 Pulse Oximetry 98 97 Oxygen Delivery Me thod Room Air Room Air Documenting provider has reviewed patient's vital signs: yes Course Course ED Course: Differential diagnosis includes but is not limited to fracture, soft tissue injury, hardware failure. Will obtain x-rays of femur knee tib-fib and foot. Reevaluation(s) Reevaluation #1: Clearly there is a fracture of the distal femur. In discussion with Orthopedics they do not feel that this would be something they would repair here. Will look to tertiary care for assistance in the care of this patient. Vital Signs Vital signs: Initial Vital Signs Temperature 97.5 F L 08/03/24 14:38 Temperature Source Temporal Artery Scan 08/03/24 14:38 Pulse Rate 80 08/03/24 14:38 Pulse Rhythm Regular 08/03/24 14:38 Respiratory Rate 18 08/03/24 14:38 Blood Pressure 107/68 08/03/24 14:38 Blood Pressure Mean 81 08/03/24 14:38 Pulse Oximetry 98 08/03/24 14:38 Oxygen Delivery Method Room Air 08/03/24 14:38 Vital Signs Temperature 97.5 F L 08/03/24 14:38 Pulse Rate 80 08/03/24 14:38 Respiratory Rate 18 08/03/24 14:38 Blood Pressure 107/68 08/03/24 14:38 Pulse Oximetry 98 08/03/24 14:38 Oxygen Delivery Method Room Air 08/03/24 14:38 Temperature 97.5 F L 08/03/24 14:38 Pulse Rate 92 08/03/24 16:01 Respiratory Rate 16 08/03/24 16:01 Blood Pressure 119/54 L 08/03/24 16:01 Pulse Oximetry 97 08/03/24 16:01 Oxygen Delivery Method Room Air 08/03/24 16:01 Medical Decision Making MDM Narrative Medical decision making narrative: 1. Right distal femur periprosthetic fracture-unfortunately unable to repair this injury at [facility]. No other injury with normal tib-fib and foot x-ray. We have obtained acceptance from [facility] Tiffany Fisher hospitalist. Also, Dr. Hope orthopedic surgeon has accepted patient. Has asked that we obtain CT of the knee while we are awaiting transfer. 2. Pending surgery- 3. Disposition-patient will be ground ambulance BLS transport to [facility]. Medical Records Medical records reviewed: Yes I reviewed the patient's medical records Lab Data Lab results reviewed: Yes I reviewed the patient's lab results Labs: Lab Results 08/03/24 Range/Units 17:15 WBC 16.40 H (4.50-11.00) K/uL RBC 4.25 L (4.30-5.90) m/uL Hgb 12.8 L (13.5-17.5) gm/dL Hct 38.9 (37.0-53.0) % MCV 92 (80-100) fL MCH 30 (26-34) pg MCHC 33 (32-36) gm/dL RDW Coeff of Pratima 12.7 (11.5-15.5) % Plt Count 196 (140-440) K/uL Neut % (Auto) 69.4 (42.0-72.0) % Lymph % (Auto) 19.1 L (20-44) % [place] % (Auto) 10.6 (0.0-11.0) % Eos % (Auto) 0.5 (0.0-7.0) % Baso % (Auto) 0.1 (0.0-3.0) % Neut # (Auto) 11.40 H (1.7-7.0) K/uL Lymph # (Auto) 3.10 H (0.90-2.90) K/uL [place] # (Auto) 1.70 H (0.00-0.90) K/UL Eos # (Auto) 0.10 (0.00-0.50) K/uL Baso # (Auto) 0.00 (0.00-0.30) K/uL Abs Immat Gran (auto) 0.00 (0.00-0.30) K/uL Imm/Tot Granulo (auto) 0.3 % INR 1.00 (0.91-1.10) Sodium 135 (135-149) mmol/L Potassium 5.4 H (3.6-5.1) mmol/L Chloride 103 (96-114) mmol/L Carbon Dioxide 22 (20-32) mmol/L Anion Gap 10 (7-15) mEq/L BUN 41 H (7-30) mg/dL Creatinine 1.0 (0.5-1.5) mg/dL Estimated Creat Clear 46.82 Estimated GFR 72 ml/min Glucose 161 H (60-115) mg/dL Calcium 8.9 (8.4-10.6) mg/dL Total Bilirubin 0.7 (0.1-1.5) mg/dL AST 51 H (12-35) U/L ALT 47 (4-50) U/L Alkaline Phosphatase 62 (40-150) U/L Total Protein 6.2 (6.0-8.3) g/dL Albumin 4.0 (3.3-5.0) g/dL Imaging Data Femur x-ray: Attestation: I have reviewed the pertinent imaging results. My impression: Distal femur fracture with obvious displacement Radiologist's impression: here is a right knee arthroplasty. There is a distal femoral periprosthetic fracture. The distal femoral fragment is displaced posteriorly by 2 centimeters and there is 1.5 centimeters of fracture overlap. The central portion of the distal femoral medullary canal is impacted on the anterior margin of the arthroplasty. The arthroplasty itself is without any focal loosening. The tibial and patellar components of the arthroplasty are in good position without loosening failure or migration. The alignment of the femoral and tibial components is normal. No fracture [id number]. Normal hip alignment. Minimal hip osteoarthritis. Normal ankle alignment. No substantial osteoarthritis in the ankle or hindfoot. Marked soft tissue swelling in the distal thigh. No focally destructive bony lesion. Atherosclerotic vascular calcifications. IMPRESSION: Displaced right distal femoral periprosthetic fracture. Right foot x-ray: Attestation: I have reviewed the pertinent imaging results. My impression: I do not note any acute fractures Radiologist's impression: No acute or healing fracture. No dislocation. Osteoarthritis, mild. No focal bone lesions. Soft tissues are normal. No foreign body. IMPRESSION: No acute or traumatic findings in the right foot. Right tib-fib x-ray: Attestation: I have reviewed the pertinent imaging results. Radiologist's impression: There is a right knee arthroplasty. There is a distal femoral periprosthetic fracture. The distal femoral fragment is displaced posteriorly by 2 centimeters and there is 1.5 centimeters of fracture overlap. The central portion of the distal femoral medullary canal is impacted on the anterior margin of the arthroplasty. The arthroplasty itself is without any focal loosening. The tibial and patellar components of the arthroplasty are in good position without loosening failure or migration. The alignment of the femoral and tibial components is normal. No fracture [id number]. Normal hip alignment. Minimal hip osteoarthritis. Normal ankle alignment. No substantial osteoarthritis in the ankle or hindfoot. Marked soft tissue swelling in the distal thigh. No focally destructive bony lesion. Atherosclerotic vascular calcifications. IMPRESSION: Displaced right distal femoral periprosthetic fracture. Right knee CT: Attestation: I have reviewed the pertinent imaging results. Radiologist's impression: Evaluation is limited secondary to beam hardening artifact from right knee arthroplasty. There is a distal right femoral periprosthetic fracture with the distal fracture segment displaced posteriorly by approximately 1 bone width and approximally 1.5 centimeters of osseous overlap with anterior aspect of the femoral arthroplasty component seen in the medullary cavity of the distal right femur, better appreciated on same-day radiographs. Small suprapatellar joint effusion. Mild soft tissue edema about the knee. Scattered calcific atherosclerosis. Impression: Displaced distal right femoral periprosthetic fracture as detailed above. ECG Data Attestation: I personally reviewed and interpreted this ECG as follows: Interpretation: EKG by my read shows sinus rhythm at a rate of 92. I do not note any acute ST or T-wave changes. Incomplete right bundle-branch. Normal QT and MO intervals. Discharge Plan Discharge Clinical Impression: Fracture of distal end of femur Patient Disposition: [facility] Discharge Location: [facility] Condition: Improved
--- NOTE | 2024-08-03 15:11 | CRLHL7_ITS ---
For Patients: As a result of the Century Cures Act, medical imaging exams and procedure reports are released immediately into your electronic medical record. You may view this report before your referring provider. If you have questions, please contact your health care provider. INDICATION: Pain, fall mid and distal femur COMPARISON: Knee radiographs 06/29/2018 TECHNIQUE: Two views right femur. Two views right tibia and fibula. FINDINGS: There is a right knee arthroplasty. There is a distal femoral periprosthetic fracture. The distal femoral fragment is displaced posteriorly by 2 centimeters and there is 1.5 centimeters of fracture overlap. The central portion of the distal femoral medullary canal is impacted on the anterior margin of the arthroplasty. The arthroplasty itself is without any focal loosening. The tibial and patellar components of the arthroplasty are in good position without loosening failure or migration. The alignment of the femoral and tibial components is normal. No fracture [id number]. Normal hip alignment. Minimal hip osteoarthritis. Normal ankle alignment. No substantial osteoarthritis in the ankle or hindfoot. Marked soft tissue swelling in the distal thigh. No focally destructive bony lesion. Atherosclerotic vascular calcifications. IMPRESSION: Displaced right distal femoral periprosthetic fracture. Dictated by Jo Ann Hernadnez MD @ 08/03/2024 4:03:19 PM (Electronically Signed)
--- NOTE | 2024-08-03 15:11 | CRLHL7_ITS ---
For Patients: As a result of the Century Cures Act, medical imaging exams and procedure reports are released immediately into your electronic medical record. You may view this report before your referring provider. If you have questions, please contact your health care provider. INDICATION: Pain, fall mid and distal femur COMPARISON: Knee radiographs 06/29/2018 TECHNIQUE: Two views right femur. Two views right tibia and fibula. FINDINGS: There is a right knee arthroplasty. There is a distal femoral periprosthetic fracture. The distal femoral fragment is displaced posteriorly by 2 centimeters and there is 1.5 centimeters of fracture overlap. The central portion of the distal femoral medullary canal is impacted on the anterior margin of the arthroplasty. The arthroplasty itself is without any focal loosening. The tibial and patellar components of the arthroplasty are in good position without loosening failure or migration. The alignment of the femoral and tibial components is normal. No fracture [id number]. Normal hip alignment. Minimal hip osteoarthritis. Normal ankle alignment. No substantial osteoarthritis in the ankle or hindfoot. Marked soft tissue swelling in the distal thigh. No focally destructive bony lesion. Atherosclerotic vascular calcifications. IMPRESSION: Displaced right distal femoral periprosthetic fracture. Dictated by Jo Ann Hernandez MD @ 08/03/2024 4:02:30 PM (Electronically Signed)
--- NOTE | 2024-08-03 15:11 | CRLHL7_ITS ---
For Patients: As a result of the Cures Act, medical imaging exams and procedure reports are released immediately into your electronic medical record. You may view this report before your referring provider. If you have questions, please contact your health care provider. INDICATION: Pain with palpation over the dorsum of the foot after a fall COMPARISON: Same day right tibia/fibula radiographs TECHNIQUE: Two views right foot, nonweightbearing. FINDINGS: No acute or healing fracture. No dislocation. Osteoarthritis, mild. No focal bone lesions. Soft tissues are normal. No foreign body. IMPRESSION: No acute or traumatic findings in the right foot. Dictated by Jo Ann Hernandez MD @ 08/03/2024 3:59:51 PM (Electronically Signed)
--- OUTSIDE RECORDS SUMMARY | 2024-08-03 15:25 | XMS_ITS | Clinical Summary ---
Author Organization [facility] Address [address] [place] [id number] Care Team Providers Care Labor Mediator Name Role Phone Mckinley Olvera MD Primary Care Provider Allergies No known active allergies Medications ONETOUCH ULTRA TEST strip 7 Active fluorometholone (FML) 0.1 % ophthalmic suspension SHAKE LQ AND INT 1 GTT IN OS ONCE D 12 8 Active BD INSULIN PEN NEEDLE UF 31 gauge x 5/16 U BID 4 8 Active celecoxib (CELEBREX) 200 mg capsule Take 1 capsule by mouth. DAILY PRN 0 8 Active insulin glargine (LANTUS U-100 INSULIN) 100 unit/mL injection Inject 47 Units subcutaneous once daily. 10 mL 8 Active metoprolol tartrate (LOPRESSOR) 25 mg tablet 0.5 tablets 2 times daily. 0 8 Active multivitamin (MVI) tablet Take 1 tablet by mouth once daily. 0 8 Active insulin aspart U-100 (NOVOLOG) 100 unit/mL solution for injection Inject subcutaneous 3 times daily before meals. 16 U in the AM , 16 U in the evening and 11 Units one time daily 0 8 Active carboxymethylce llulose 0.5% (REFRESH TEARS) 0.5 % drop ophthalmic drops Place 1 Drop into both eyes 4 times daily if needed for Dry Eyes. 0 8 Active rosuvastatin (CRESTOR) 10 mg tablet Take 1 tablet by mouth at bedtime. 0 8 Active montelukast (SINGULAIR) 10 mg tablet Take 1 tablet by mouth at bedtime. 0 8 Active lisinopril (PRINIVIL; ZESTRIL) 20 mg tablet Take 2 tablets by mouth once daily. 0 8 Active melatonin 3 mg tablet Take 1 tablet by mouth at bedtime if needed for Sleep. 0 9 Active hydrocortisone 1 % creamIndication s:Rash Apply topically to affected area(s) 2 times daily. 14.2 g 9 Active traMADol (ULTRAM) 50 mg tablet TK 1 TO 2 TS PO Q 6 H PRN P 0 9 Active ONETOUCH ULTRASOFT LANCETS 4 times daily. 2 9 Active oxybutynin XL (DITROPAN XL) 5 mg CR tabletIndicatio ns:Urinary urgency TAKE 1 TABLET BY MOUTH EVERY DAY 90 Tablet 3 2 Active Active Problems Problem Noted Date Diagnosed [...] lumbar or lumbosacral interverte bral disc 11/10/2010 Encounters Date Type Department Care Team Description 07/10/2024 Telephone [facility] [address] [place] [address] Josafat Bermudez, Erin hearing aid 07/10/2024 Telephone [facility] [address] [place] [address] Josafat Bermudez, [facility] 06/13/2024 12:30 PM FLUOROSCOPE OPERATOR Office Visit [facility] [address] [place] [address] Josafat Bermudez [facility] 06/13/2024 Travel 05/29/2024 10:30 AM FLUOROSCOPE OPERATOR Office Visit [facility] [address] [place] [id number] Josafat Bermudez [facility] (Fitting) 05/29/2024 Travel 05/15/2024 8:00 AM FLUOROSCOPE OPERATOR Office Visit [facility] [address] [place] [id number] Josafat Bermudez [facility] (Consultation) 05/15/2024 Travel from Last 3 Months Social History Tobacco Use Types Packs/Day Years Used Date Smoking Tobacco: Never Smokeless Tobacco: Never Tobacco Cessation:Counseling Given: Yes Alcohol Use Standard Drinks/Week Comments Not Currently 0 (1 standard drink = 0.6 oz pur e alcohol) Sex and Gender Information Value Date Recorded Sex Assigned at Not on file Legal Sex Male 7:58 AM FLUOROSCOPE OPERATOR Gender Identity Not on file Sexual Orientation Not on file Obstetrics History Last Filed Vital Signs Vital Sign Reading Time Taken Comments Blood Pressure 179/81 03/15/2020 9:10 AM FLUOROSCOPE OPERATOR Pulse 91 03/15/2020 9:10 AM FLUOROSCOPE OPERATOR Temperature 36.8 C (98.2 F) 06/24/2018 9:53 AM CDT Respiratory Rate 20 04/07/2019 10:1 2 AM FLUOROSCOPE OPERATOR Oxygen Saturation 98% 03/15/2020 9:10 AM FLUOROSCOPE OPERATOR Inhaled Oxygen Concentration - - Weight 75.2 kg (165 lb 11.2 oz) 03/15/2020 9:10 AM FLUOROSCOPE OPERATOR Height 172.7 cm (5' 8) 07/19/2017 2:18 PM CDT Body Mass Index 25.19 07/19/2017 2:18 PM CDT Plan of Treatment Health Maintenance Due Date Last Done Comments Tdap 1945 Depression screening for age 12+ 1946 Pneumococcal series for age 50+ (1 of 2 - PCV) 1953 Tetanus booster 1954 Zoster (shingles) series for age 50+ (1 of 2) 1984 Medicare Wellness for age 65+ 11/28/1999 RSV vaccine for adults or (1 - 1-dose 75+ series) 2009 BMI (ht and wt on same day) for age 18+ 07/19/2018 07/19/2017 COVID-19 vaccine series ( season) 2024 02/20/2024, 06/26/2023, 02/27/2023, Additional history exists Influenza Vaccine (Season Ended) 2024 Insurance MEDICARE PB ONLY [facility] PB ONLY MEDICARE PART B HB ONLY MEDICARE PART A HB ONLY [facility] HB ONLY Care Teams Labor Mediator Relationship Specialty Start Date End Date Mckinley Olvera MD [address] [place], [place] [id number] PCP - General 09/07/10
--- NOTE | 2024-08-03 16:49 | CRLHL7_ITS ---
For Patients: As a result of the Cures Act, medical imaging exams and procedure reports are released immediately into your electronic medical record. You may view this report before your referring provider. If you have questions, please contact your health care provider. Indication: : Femur fracture TECHNIQUE: Single-view chest. FINDINGS: The lungs are clear. The heart, mediastinum and pulmonary vessels are of normal size. There is no evidence of pleural disease. IMPRESSION: Negative chest. Dictated by Bernadette Cabrera MD @ 08/03/2024 5:22:18 PM (Electronically Signed)
--- NOTE | 2024-08-03 17:02 | CRLHL7_ITS ---
For Patients: As a result of the Cures Act, medical imaging exams and procedure reports are released immediately into your electronic medical record. You may view this report before your referring provider. If you have questions, please contact your health care provider. Indication: RT DISTAL FEMUR PERIPROSTHETIC FRACTURE Technique: CT right knee without IV contrast Comparison: Same-day right radiographs Findings: Evaluation is limited secondary to beam hardening artifact from right knee arthroplasty. There is a distal right femoral periprosthetic fracture with the distal fracture segment displaced posteriorly by approximately 1 bone width and approximally 1.5 centimeters of osseous overlap with anterior aspect of the femoral arthroplasty component seen in the medullary cavity of the distal right femur, better appreciated on same-day radiographs. Small suprapatellar joint effusion. Mild soft tissue edema about the knee. Scattered calcific atherosclerosis. Impression: Displaced distal right femoral periprosthetic fracture as detailed above. Please note that all CT scans at this facility use dose modulation, iterative reconstruction, and/or weight-based dosing when appropriate to reduce radiation dose to as low as reasonably achievable. Dictated by Emmanuel Greco MD @ 08/03/2024 5:55:34 PM (Electronically Signed)
[2024-08-03 17:28] LABS: Basophils Percent Auto 0.1 % (0.0-3.0); Eosinophils Percent Auto 0.5 % (0.0-7.0); Hematocrit 38.9 % (37.0-53.0); Hemoglobin* 12.8 gm/dL (13.5-17.5); Immature Granulocytes Pct Auto 0.3 %; Lymphocytes Percent Auto 19.1 % (20-44); Mean Corpuscular HGB Conc 33 gm/dL (32-36); Mean Corpuscular Hemoglobin 30 pg (26-34); Mean Corpuscular Volume 92 fL (80-100); Monocytes Percent Auto 10.6 % (0.0-11.0); Neutrophils Percent Auto 69.4 % (42.0-72.0); Platelet Count* 196 K/uL (140-440); RDW Coefficient of Variation % 12.7 % (11.5-15.5); Red Blood Count 4.25 m/uL (4.30-5.90)
[2024-08-03 17:36] LABS: Chloride* 103 mmol/L (96-114)
[2024-08-03 17:37] LABS: Potassium* 5.4 mmol/L (3.6-5.1); Sodium* 135 mmol/L (135-149)
[2024-08-03 17:39] LABS: Alanine Aminotransferase* 47 U/L (4-50); Alkaline Phosphatase* 62 U/L (40-150); Anion Gap 10 mEq/L (7-15); Aspartate Amino Transferase* 51 U/L (12-35); Bilirubin Total* 0.7 mg/dL (0.1-1.5); Blood Urea Nitrogen* 41 mg/dL (7-30); Carbon Dioxide* 22 mmol/L (20-32); Est. Creatinine Clearance* 46.82; Estimated Glomerular Filt Rate 72 ml/min; Total Protein* 6.2 g/dL (6.0-8.3)
[2024-08-03 17:40] LABS: Calcium* 8.9 mg/dL (8.4-10.6); Glucose* 161 mg/dL (60-115)
[2024-08-03 17:45] LABS: Slide Review Reflex No
[2024-08-03] MEDS: METOPROLOL TARTRATE 25 MG TABLET 12.5 MG PO (19:39)
[2024-08-03] MEDS: 0.9 % SODIUM CHLORIDE 500 ML 500 ML IV (19:43)
[2024-08-03 19:45] LABS: Magnesium* 1.9 mg/dL (1.5-2.6)
[2024-08-03 20:25] LABS: Troponin, Point-of-Care* 0.01 ng/ml (0.01-0.04)
--- NOTE | 2024-08-03 20:38 | CRLHL7_ITS ---
For Patients: As a result of the Century Cures Act, medical imaging exams and procedure reports are released immediately into your electronic medical record. You may view this report before your referring provider. If you have questions, please contact your health care provider. INDICATION: Tachycardia. TECHNIQUE: CT chest PE was acquired with 100 cc Omnipaque 350 IV contrast. MIP reconstructions were performed. COMPARISON: None. FINDINGS: Heart and vasculature: Contrast opacification of the pulmonary arterial tree is adequate. No sign of pulmonary embolism. Heart size is normal. Coronary artery calcifications. Thoracic aorta and pulmonary artery are normal in caliber. Lungs and pleura: No suspicious nodules or infiltrates. No pleural effusions, pleural thickening, or pneumothorax. Lymph nodes/mediastinum: No mediastinal, hilar, or axillary adenopathy. Chest wall: Indeterminate 2.3 centimeter rounded left breast mass (series 4/image 85). Upper abdomen: No acute or significant findings. Bones: Unremarkable for age. IMPRESSION: No pulmonary embolism. No focal consolidations. Coronary artery calcifications. Indeterminate 2.3 centimeter rounded left breast mass. Recommend correlation with physical examination. Consider nonemergent ultrasound for further evaluation. Please note that all CT scans at this facility use dose modulation, iterative reconstruction, and/or weight-based dosing when appropriate to reduce radiation dose to as low as reasonably achievable. Dictated by Charan Park MD @ 08/03/2024 9:27:11 PM (Electronically Signed)
--- NOTE | 2024-08-03 20:38 | CRLHL7_ITS ---
For Patients: As a result of the Century Cures Act, medical imaging exams and procedure reports are released immediately into your electronic medical record. You may view this report before your referring provider. If you have questions, please contact your health care provider. INDICATION: Fall. TECHNIQUE: CT abdomen and pelvis acquired with 95 cc Omnipaque 350 IV contrast. COMPARISON: None. FINDINGS: Lower chest: Scattered atelectasis. Liver: Hepatic steatosis. No suspicious masses. Gallbladder and bile ducts: Cholecystectomy. Pancreas: Unremarkable. No mass or inflammation. Spleen: Unremarkable. Normal in size. No masses. Adrenal glands: Unremarkable. No nodules. Kidneys: Unremarkable. No suspicious masses, stones, or hydronephrosis. GI tract: Postsurgical changes in the proximal colon. Colonic diverticulosis. No bowel obstruction. Vasculature: Aortoiliac arterial calcifications. Abdominal aorta is normal in caliber. Mesenteric arteries are patent. Lymph nodes: No lymphadenopathy. Peritoneum/Abdominal Wall: Moderate fat containing right and small fat containing left inguinal hernias. No sign of mass or infiltration. No free air or significant free fluid. Pelvis: Mildly distended bladder with circumferential wall thickening. Recommend correlation with urinalysis if UTI suspected.. Bones: Degenerative changes. IMPRESSION: No acute intra-abdominal/pelvic abnormality. Chronic findings as above. Please note that all CT scans at this facility use dose modulation, iterative reconstruction, and/or weight-based dosing when appropriate to reduce radiation dose to as low as reasonably achievable. Dictated by Charan Park MD @ 08/03/2024 9:33:09 PM (Electronically Signed)
[2024-08-03 21:03] LABS: Potassium* 4.6 mmol/L (3.6-5.1)
[2024-08-03 21:33] LABS: Troponin, Point-of-Care* 0.01 ng/ml (0.01-0.04)
[2024-08-03 22:28] LABS: Appearance Urine Clear (Clear); Bilirubin Urine Negative (Negative); Blood Urine Negative (Negative); Color Urine Yellow (Yellow); Glucose Urine Negative (Negative); Ketones Urine Negative (Negative); Leukocyte Esterase Urine Negative (Negative); Nitrite Urine Negative (Negative); Protein Urine Negative (Negative); Specific Gravity Urine <= 1.005 (1.000-1.030); Urobilinogen Urine 0.2 (0.2-1.0)
[2024-08-03 22:42] LABS: RBC Urine 0-2 (0-2)
[2024-08-03 22:43] LABS: Bacteria Urine Few; Squamous Epithelial Cell Urine Few (None-Few)
== END 2024-08-03 22:23 | disposition short-term general hospital (02) ==
PROVIDERS: Emergency Provider Family Medicine; PCP Internal Medicine
DX: S72.401A Unspecified fracture of lower end of right femur, initial encounter for closed fracture (principal); R00.0 Tachycardia, unspecified; I95.9 Hypotension, unspecified; N63.20 Unspecified lump in the left breast, unspecified quadrant; R39.198 Other difficulties with micturition; W01.0XXA Fall on same level from slipping, tripping and stumbling without subsequent striking against object, initial encounter
CPT/HCPCS: 51702; 36415; 71045; 71275; 73552; 73590; 73620; 73700; 74177; 80053; 81001; 82962; 83735; 84132; 84484; 85025; 85610; 87086; 93005; 96360; 99284; 99285; A9270; J7030; Q9967

== ENCOUNTER 2024-08-03 22:08 | Outpatient (CLI) | payer MEDICARE, SELFPAY | END 2024-08-03 22:09 | disposition home or self-care (01) | PROVIDERS: PCP Internal Medicine; Visit Provider Emergency Medicine | DX: S72.401A Unspecified fracture of lower end of right femur, initial encounter for closed fracture (principal) | CPT/HCPCS: A0425; A0427 ==